=== PATIENT | female | born 1930 | race Caucasian/White ===

== ENCOUNTER → 2017-01-30 | Outpatient (CLI) | payer OTHER, MEDICARE ==
[~2017-01-30] MED LIST: ASPEC81 PO; ASPI81TA28 PO; ATEN-173 PO; ATOR-24 PO; AZEL15GE TOP; CETI10TA84 PO; CHOL100010 PO; CLCC1250 PO; DICL1GEL12 TOP; DICL1GEL28 TOP; DONE5TAB9 PO; DULO60CA44 PO; ESZO1TAB18 PO; FNCG50 TOP; FRC PO; FRCT/ PO; GLUC-172 PO; GLUCTAB54 PO; IPRA0.03 NAE; IPRA0.037 NAE; LEVO75TA5 PO; MELA1TAB5 PO; MELA3TAB PO; PANT40TA PO; RIBO1TAB4 PO
--- NOTE | 2017-01-31 13:04 | MAMMOGRAPHY REPORT ---
BILATERAL DIGITAL SCREENING MAMMOGRAM WITH CAD: 01/30/2017 CLINICAL HISTORY: Routine screening. Patient has no complaints. TECHNIQUE: Current study was also evaluated with a Computer Aided Detection (CAD) system. Bilatera l CC and MLO views were obtained. COMPARISON: Comparison is made to exams dated: 01/24/2015 mammogram, 01/21/2014 mammogram, 01/26/2016 mammogram, 01/13/2013 mammogram, 01/09/2012 mammogram, and 01/05/2011 mammogram - [facility]. BREAST COMPOSITION: The tissue of both breasts is heterogeneously dense, which may obscure small ma sses. FINDINGS: There is a 7 mm asymmetry seen on the left MLO view middle depth posterior to the nipple, not clearly evident on the cc view, for which spot compression tomosynthesis views and possible kerri ast ultrasound are recommended for further evaluation. This may represent normal overlapping fibrog landular tissue. At the time of the workup, recommend repeat right MLO view due to motion artifact. The remainder of both breasts are stable compared to prior exams, without suspicious masses, calcifi cations, or areas of architectural distortion noted. IMPRESSION: ACR BI-RADS CATEGORY 0: INCOMPLETE EVALUATION: NEED ADDITIONAL IMAGING EVALUATION Left breast asymmetry, for which additional imaging evaluation is recommended. Also recommend repea t right MLO view due to motion artifact. The patient will be called to schedule an appointment. Approximately 10% of breast cancers are not detected with mammography. A negative mammographic repor t should not delay biopsy if a clinically suggestive mass is present. Deedee Barrow M.D. ah/:01/30/2017 16:49:00 [employer]: Julissa DUVALL(R)(M), [facility] letter sent: Addl Imaging 0 BI-RADS Code: ACR BI-RADS Category 0: Incomplete Evaluation: Need Additional Imaging Evaluation
== END | disposition home or self-care (01) ==
LOC: C.MAMM 13:12
PROVIDERS: ATTEND Obstetrics & Gynecology
DX: Z12.31 Encounter for screening mammogram for malignant neoplasm of breast (principal); N64.89 Other specified disorders of breast

== ENCOUNTER 2017-03-15 09:36 | Emergency (ER) | payer OTHER, MEDICARE ==
[~2017-03-15] VITALS: Ht 162.6 cm; Wt 55.2 kg
[~2017-03-15 09:36] MED LIST changes: -ASPI81TA28 PO; -DICL1GEL12 TOP; -DONE5TAB9 PO; -ESZO1TAB18 PO; -FNCG50 TOP; -FRCT/ PO; -GLUCTAB54 PO; -IPRA0.03 NAE; -MELA1TAB5 PO; -RIBO1TAB4 PO
[2017-03-15] MEDS ORDERED: OXYCODONE HCL IR 5 MG TAB (IMMEDIATE RELEASE) PO STA (09:53)
[2017-03-15 09:57] VITALS: TEMP 36.5; Ht 162.6 cm; Wt 55.2 kg
[2017-03-15 10:40] LABS: BASO % 0.1 %; BASO ABS # 0.01 K/uL (0-0.2); COMPLETE YES; EOS % 0.5 %; HEMATOCRIT 39.9 % (37-47); IG% 0.6 %; LYMPH ABS # 1.52 K/uL (1.2-3.4); MEAN CORPUSCULAR HEMOGLOBIN 31.2 pg (25-34); MEAN CORPUSCULAR HGB CONC 33.6 g/dl (32-36); MEAN PLATELET VOLUME 12.2 fL (7.4-10.4); MONO % 11.2 %; NEUT % 72.6 %; PLATELET COUNT 218 K/uL (130-400); RED BLOOD COUNT 4.29 M/uL (4.2-5.4); WHITE BLOOD COUNT 10.15 K/uL (4.8-10.8)
--- NOTE | 2017-03-15 10:44 | DIAGNOSTIC IMAGING REPORT ---
RIGHT SHOULDER 3 VIEWS HISTORY: Right shoulder pain. COMPARISON: Right shoulder 08/20/2016. 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 There is now anterior dislocation of the humeral head in relation to the glenoid. The right clavicle is intact. No radiopaque foreign bodies. IMPRESSION: Anterior dislocation of the humeral head in relation to the glenoid. No change in the nonunited right humeral neck fracture. Electronically signed by: Carlos Horton M.D. 03/15/2017 10:42 AM Dictated Date/Time: 03/15/2017 10:39 AM
--- NOTE | 2017-03-15 10:47 | DIAGNOSTIC IMAGING REPORT ---
CHEST ONE VIEW PORTABLE HISTORY: fall COMPARISON: Chest 04/24/2014. FINDINGS: The lungs are clear. The heart is normal in size. Mildly tortuous thoracic aorta. 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 No pleural effusions. No pneumothorax. Nondisplaced right lateral ninth and 10th rib fractures. IMPRESSION: 1. Nondisplaced right lateral ninth and 10th rib fractures. No pneumothorax. 2. 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 Electronically signed by: Carlos Horton M.D. 03/15/2017 10:46 AM Dictated Date/Time: 03/15/2017 10:43 AM
--- NOTE | 2017-03-15 10:52 | DIAGNOSTIC IMAGING REPORT ---
RIGHT KNEE 3 VIEWS CLINICAL HISTORY: Right knee pain following fall. COMPARISON: Knee radiographs October 25, 2011. FINDINGS: Alignment of the right knee is anatomic. There is no acute fracture. There may be a small right knee joint effusion. There is chondrocalcinosis. Marked narrowing of the patellofemoral joint space is noted. IMPRESSION: 1. No acute fracture. 2. Small right knee joint effusion. 3. Marked patellofemoral joint space narrowing with chondrocalcinosis within the menisci. Electronically signed by: Kavon Connor M.D. 03/15/2017 10:51 AM Dictated Date/Time: 03/15/2017 10:47 AM
--- NOTE | 2017-03-15 11:04 | DIAGNOSTIC IMAGING REPORT ---
CT HEAD WITHOUT CONTRAST (CT) CLINICAL HISTORY: Headache. Head trauma. COMPARISON STUDY: 04/24/2014 TECHNIQUE: Axial CT of the brain is performed from the vertex to the skull base. IV contrast was not administered for this examination. CT DOSE: FINDINGS: No intra or extra-axial mass lesions are visualized. There is no CT evidence of acute cortical infarction. There is no evidence of midline shift. There is no acute hemorrhage. No calvarial fractures are visualized. There are moderate white matter hypodensities likely on a small vessel basis. There is an old infarct involving the right basal ganglia with involvement of the external capsule and anterior limb of the internal capsule. There is compensatory dilatation of the anterior horn the right lateral ventricle. There is also an old lacunar infarct within the left basal ganglia. There is no evidence of pathologic ventricular dilatation. There is no evidence of acute sinusitis. 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 03/15/2017 11:02 AM Dictated Date/Time: 03/15/2017 11:00 AM
--- NOTE | 2017-03-15 11:11 | DIAGNOSTIC IMAGING REPORT ---
CERVICAL SPINE CT CT DOSE: 840.01 mGy.cm HISTORY: Left sided neck pain. Fall. TECHNIQUE: Multiaxial CT images of the cervical spine were performed and reformatted in the sagittal and coronal plane without the use of contrast. COMPARISON: None. FINDINGS: No fractures. No subluxation. Prevertebral soft tissues and the C1-C2 interval are intact. No pneumothorax. Moderate disc space narrowing at C4-C5, C5-C6, and C6-C7. IMPRESSION: No fractures within the cervical spine. Electronically signed by: Carlos Horton M.D. 03/15/2017 11:10 AM Dictated Date/Time: 03/15/2017 11:05 AM
[2017-03-15 11:13] LABS: URINE APPEARANCE CLEAR (CLEAR); URINE BILIRUBIN NEG (NEG); URINE COLOR YELLOW; URINE EPITHELIAL CELL AUTO >30 /lpf (0-5); URINE NITRITE NEG (NEG); URINE SPECIFIC GRAVITY 1.019 (1.000-1.030); UROBILINOGEN NEG (NEG); ZZURINE CULT IF INDIC CATH NO
[2017-03-15] MEDS ORDERED: GLUCTAB54 PO (11:14)
[2017-03-15] MEDS ORDERED: ESZO1TAB18 PO (11:14)
[2017-03-15] MEDS ORDERED: RIBO1TAB4 PO (11:14)
[2017-03-15] MEDS ORDERED: PANT40TA PO (11:14)
[2017-03-15] MEDS ORDERED: FRCT/ PO (11:14)
[2017-03-15] MEDS ORDERED: IPRA0.03 NAE (11:14)
[2017-03-15] MEDS ORDERED: CHOL100010 PO (11:14)
[2017-03-15] MEDS ORDERED: ATOR-24 PO (11:14)
[2017-03-15] MEDS ORDERED: LEVO75TA5 PO (11:14)
[2017-03-15] MEDS ORDERED: MELA1TAB5 PO (11:14)
[2017-03-15] MEDS ORDERED: ATEN-173 PO (11:14)
[2017-03-15] MEDS ORDERED: DICL1GEL12 TOP (11:14)
[2017-03-15] MEDS ORDERED: ASPI81TA28 PO (11:14)
[2017-03-15] MEDS ORDERED: FNCG50 TOP (11:14)
[2017-03-15] MEDS ORDERED: DULO60CA44 PO (11:14)
[2017-03-15 11:30] LABS: MANUAL MICROSCOPIC REQUIRED? NO; REVIEW REQ? YES
[2017-03-15 11:34] LABS: ALKALINE PHOSPHATASE 182 U/L (45-117); ALT/SGPT 84 U/L (12-78); AST/SGOT 59 U/L (15-37); BLOOD UREA NITROGEN 21 mg/dl (7-18); BUN/CREATININE RATIO 21.7 (10-20); CALCIUM 10.1 mg/dl (8.5-10.1); CARBON DIOXIDE 31 mmol/L (21-32); CHLORIDE 102 mmol/L (98-107); CREATININE 0.98 mg/dl (0.60-1.20); GLUCOSE 102 mg/dl (70-99); POTASSIUM 4.1 mmol/L (3.5-5.1); SODIUM 139 mmol/L (136-145)
--- NOTE | 2017-03-15 13:34 | DIAGNOSTIC IMAGING REPORT ---
RIGHT SHOULDER RADIOGRAPHS CLINICAL HISTORY: Fall. Right shoulder pain. COMPARISON: Right shoulder radiographs August 20, 2016 and March 15, 2017. FINDINGS: A nonunited right humeral neck fracture is similar to exam of August 20, 2016. Fracture displacement is unchanged since that exam. Alignment of the right glenohumeral joint appears anatomic on this exam and improved since exam from earlier today. Alignment of the right AC joint is anatomic. IMPRESSION: 1. No change in appearance of the right shoulder since exam of August 20, 2016. Anatomic alignment of the right glenohumeral joint which appears improved since exam from earlier today. 2. No change in appearance of the nonunited right humeral neck fracture since exam of August 20, 2016. Electronically signed by: Kavon Connor M.D. 03/15/2017 1:32 PM Dictated Date/Time: 03/15/2017 1:30 PM
[2017-03-15 14:36] VITALS: BP 164/83; PULSE 93; O2SAT 97
--- NOTE | 2017-03-15 15:05 | EMERGENCY ROOM VISIT NOTE ---
History Report prepared by Mariibjavid: Geovanny Sahni Under the Supervision of: Dr. Jaime Hanks D.O. First contact with patient: 09:41 Chief Complaint: SHOULDER PAIN Stated Complaint: FALL History of Present Illness The patient is a 86 year old female who presents to the Emergency Room with complaints of constant neck pain s/p fall occurring shortly prior to arrival. She states that her found her on the floor immediately after she fell. She thinks that she likely fell out of bed, but may have been walking to the bathroom. The patient states "I was aware that something weird was going on". She states that she woke up on the floor and was not able to get up by herself. She is not on any blood thinners. The patient states that her right shoulder hurts, but this is chronic and not resulting from the fall. She also complains of right knee pain. She has a history of chronic back pain as well. Pt denies headache, change in vision, fevers, chest pain, shortness of breath, nausea, vomiting, diarrhea, pain with urination, and melena. Per , the patient has a history of strokes. He feels that the patient may have had a TIA within the past few weeks because he has noticed some behavioral changes. He notes that she has a history of dementia. The patient's states that the patient is at her mental baseline. Source of History: patient Onset: Shortly prior to arrival Position: neck Timing: constant Associated Symptoms: No fevers, No chest pain, No SOB, No nausea, No vomiting, No diarrhea Note: The patient also complains of right knee pain. Review of Systems See HPI for pertinent positives & negatives. A total of 10 systems reviewed and were otherwise negative. Past Medical & Surgical Medical Problems: (1) Cva (2) Esophageal Reflux (3) Hypertension Nos (4) Hypothyroidism Nos (5) Lumbago (6) Lumbosacral Spondylosis (7) Osteoporosis Nos Family History No pertinent family history stated. Social History Smoking Status: Never Smoker Alcohol Use: none Marital Status: Occupation Status: retired Current/Historical Medications Scheduled Aspirin (Aspirin Ec), 162 MG PO DAILY Atenolol (Tenormin), 12.5 MG PO DAILY Atorvastatin (Lipitor), 40 MG PO DAILY Cholecalciferol (Vitamin D), 2,000 UNITS PO DAILY Diclofenac Sodium (Topical) (Voltaren 1% Top Gel), 2 GM TOP QID Duloxetine Hcl (Cymbalta), 60 MG PO DAILY Eszopiclone (Lunesta), 2 MG PO HS Abyfjiunrkh-Kcpxftccoit-Wffmon (Glucosamine Chondroitin M), 1 TAB PO DAILY Ipratropium [place] (Nasal) (Ipratropium [place]), 2 SPRAYS CHACHO TID Levothyroxine Sodium (Levothyroxine Sodium), 1 TAB PO DAILY Melatonin (Kp Melatonin), 6 MG PO HS Pantoprazole (Protonix), 40 MG PO BID Riboflavin (Riboflavin), 400 MG PO DAILY Scheduled PRN Acetamin/Butalbital/Caffeine (Fioricet), 1 TAB PO Q6 PRN for Headache or Pain Azelaic Acid (Finacea), 1 APPLN TOP UD PRN for ROSACEA Allergies Uncoded Allergies: MECLOMINE (Allergy, Mild, RASH, 04/06/16) Physical Exam Vital Signs Date Time Temp Pulse Resp B/P (MAP) Pulse Ox O2 Delivery O2 Flow Rate FiO2 03/15/17 14:36 93 16 164/83 97 03/15/17 12:52 86 18 153/90 98 Room Air 03/15/17 10:54 73 18 175/88 97 Room Air 03/15/17 09:57 36.5 80 18 150/96 97 Room Air Physical Exam GENERAL: alert, well appearing, well nourished, no distress, non-toxic HEAD: normal cephalic, atraumatic EYE EXAM: normal conjunctiva, PERRL and EOM's grossly intact OROPHARYNX: no exudate, no erythema, lips, buccal mucosa, and tongue normal and mucous membranes are moist EARS: TMs clear b/l NECK: supple, no nuchal rigidity, no adenopathy, non-tender CHEST: stable to compression anteriorly and posteriorly LUNGS: clear to auscultation. Normal chest wall mechanics HEART: no murmurs, S1 normal and S2 normal ABDOMEN: abdomen soft, non-tender, normo-active bowel sounds, no masses, no rebound or guarding. PELVIS: stable to compression anteriorly and posteriorly BACK: Back is symmetrical on inspection and there is no deformity, no midline tenderness, no CVA tenderness. UPPER EXTREMITIES: Reproducible tenderness to the right humerus, no obvious deformity. LOWER EXTREMITIES: full active and passive range of motion of all joints with minimal tenderness to the right knee. NEURO EXAM: Normal sensorium, awake, alert, oriented to person place and time. Does not recall the fall. GCS: 14. At mental baseline per . Medical Decision & Procedures ER Provider Diagnostic Interpretation: Radiology results as stated below per my review and the radiologist's interpretation: CERVICAL SPINE CT FINDINGS: No fractures. No subluxation. Prevertebral soft tissues and the C1-C2 interval are intact. No pneumothorax. Moderate disc space narrowing at C4-C5, C5-C6, and C6-C7. IMPRESSION: No fractures within the cervical spine. Electronically signed by: Carlos Horton M.D. CT HEAD WITHOUT CONTRAST (CT) FINDINGS: No intra or extra-axial mass lesions are visualized. There is no CT evidence of acute cortical infarction. There is no evidence of midline shift. There is no acute hemorrhage. No calvarial fractures are visualized. There are moderate white matter hypodensities likely on a small vessel basis. There is an old infarct involving the right basal ganglia with involvement of the external capsule and anterior limb of the internal capsule. There is compensatory dilatation of the anterior horn the right lateral ventricle. There is also an old lacunar infarct within the left basal ganglia. There is no evidence of pathologic ventricular dilatation. There is no evidence of acute sinusitis. 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 CHEST ONE VIEW PORTABLE FINDINGS: The lungs are clear. The heart is normal in size. Mildly tortuous thoracic aorta. 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 No pleural effusions. No pneumothorax. Nondisplaced right lateral ninth and 10th rib fractures. IMPRESSION: 1. Nondisplaced right lateral ninth and 10th rib fractures. No pneumothorax. 2. 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 Electronically signed by: Carlos Horton M.D. RIGHT KNEE 3 VIEWS FINDINGS: Alignment of the right knee is anatomic. There is no acute fracture. There may be a small right knee joint effusion. There is chondrocalcinosis. Marked narrowing of the patellofemoral joint space is noted. IMPRESSION: 1. No acute fracture. 2. Small right knee joint effusion. 3. Marked patellofemoral joint space narrowing with chondrocalcinosis within the menisci. Electronically signed by: Kavon Connor M.D. RIGHT SHOULDER 3 VIEWS FINDINGS: Nonunited right humeral neck fracture is again noted. There is now anterior dislocation of the humeral head in relation to the glenoid. The right clavicle is intact. No radiopaque foreign bodies. IMPRESSION: Anterior dislocation of the humeral head in relation to the glenoid. No change in the nonunited right humeral neck fracture. Electronically signed by: Carlos Horton M.D. RIGHT SHOULDER RADIOGRAPHS FINDINGS: A nonunited right humeral neck fracture is similar to exam of August 20, 2016. Fracture displacement is unchanged since that exam. Alignment of the right glenohumeral joint appears anatomic on this exam and improved since exam from earlier today. Alignment of the right AC joint is anatomic. IMPRESSION: 1. No change in appearance of the right shoulder since exam of August 20, 2016. Anatomic alignment of the right glenohumeral joint which appears improved since exam from earlier today. 2. No change in appearance of the nonunited right humeral neck fracture since exam of August 20, 2016. Electronically signed by: Kavon Connor M.D. Laboratory Results 03/15/17 10:30 Red Blood Count 4.29, Mean Corpuscular Volume 93.0, Mean Corpuscular Hemoglobin 31.2, Mean Corpuscular Hemoglobin Concent 33.6, Mean Platelet Volume 12.2, Neutrophils (%) (Auto) 72.6, Lymphocytes (%) (Auto) 15.0, Monocytes (%) (Auto) 11.2, Eosinophils (%) (Auto) 0.5, Basophils (%) (Auto) 0.1, Neutrophils # (Auto ) 7.37, Lymphocytes # (Auto) 1.52, Monocytes # (Auto) 1.14, Eosinophils # (Auto ) 0.05, Basophils # (Auto) 0.01 03/15/17 10:30 Test 03/15/17 10:30 03/15/17 10:40 White Blood Count 10.15 K/uL (4.8-10.8) Red Blood Count 4.29 M/uL (4.2-5.4) Hemoglobin 13.4 g/dL (12.0-16.0) Hematocrit 39.9 % (37-47) Mean Corpuscular Volume 93.0 fL (80-100) Mean Corpuscular Hemoglobin 31.2 pg (25-34) Mean Corpuscular Hemoglobin Concent 33.6 g/dl (32-36) Platelet Count 218 K/uL (130-400) Mean Platelet Volume 12.2 fL (7.4-10.4) Neutrophils (%) (Auto) 72.6 % Lymphocytes (%) (Auto) 15.0 % Monocytes (%) (Auto) 11.2 % Eosinophils (%) (Auto) 0.5 % Basophils (%) (Auto) 0.1 % Neutrophils # (Auto) 7.37 K/uL (1.4-6.5) Lymphocytes # (Auto) 1.52 K/uL (1.2-3.4) Monocytes # (Auto) 1.14 K/uL (0.11-0.59) Eosinophils # (Auto) 0.05 K/uL (0-0.5) Basophils # (Auto) 0.01 K/uL (0-0.2) RDW Standard Deviation 46.5 fL (36.4-46.3) RDW Coefficient of Variation 13.6 % (11.5-14.5) Immature Granulocyte % (Auto) 0.6 % Immature Granulocyte # (Auto) 0.06 K/uL (0.00-0.02) Anion Gap 6.0 mmol/L (3-11) Est Creatinine Clear Calc Drug Dose 36.9 ml/min Estimated GFR () 61.4 Estimated GFR (Non- 53.0 BUN/Creatinine Ratio 21.7 (10-20) Calcium Level 10.1 mg/dl (8.5-10.1) Total Bilirubin 0.4 mg/dl (0.2-1) Direct Bilirubin mg/dl (0-0.2) Aspartate Amino Transf (AST/SGOT) 59 U/L (15-37) Alanine Aminotransferase (ALT/SGPT) 84 U/L (12-78) Alkaline Phosphatase 182 U/L (45-117) Total Protein 8.0 gm/dl (6.4-8.2) Albumin 3.4 gm/dl (3.4-5.0) Chemistry Specimen Hemolysis Urine Color YELLOW Urine Appearance CLEAR (CLEAR) Urine pH 7.0 (4.5-7.5) Urine Specific [place] 1.019 (1.000-1.030) Urine Protein 2+ (NEG) Urine Glucose (UA) NEG (NEG) Urine Ketones NEG (NEG) Urine Occult Blood NEG (NEG) Urine Nitrite NEG (NEG) Urine Bilirubin NEG (NEG) Urine Urobilinogen NEG (NEG) Urine Leukocyte Esterase NEG (NEG) Urine WBC (Auto) 1-5 /hpf (0-5) Urine RBC (Auto) 0-4 /hpf (0-4) Urine Hyaline Casts (Auto) 10-30 /lpf (0-5) Urine Epithelial Cells (Auto) >30 /lpf (0-5) Urine Bacteria (Auto) NEG (NEG) Urine Renal Epithelial Cells 5-10 /lpf (0-5) Laboratory results per my review. Medications Administered Medications (Trade) Dose Ordered Sig/Rosa M Route Start Time Stop Time Status Last Admin Dose Admin Oxycodone HCl (Roxicodone Immediate Rel Tab) 5 mg NOW STAT PO 03/15/17 09:53 03/15/17 09:57 DC 03/15/17 09:53 5 MG ED Course ED COURSE: Vital signs were reviewed and showed hypertension The patients medical record was reviewed The above diagnostic studies were performed and reviewed. ED treatments and interventions as stated above. 0950: The patient was evaluated in room A2. A complete history and physical examination was performed. 0953: Ordered Roxicodone Immediate Rel Tab 5 mg PO. 1342: Upon reevaluation, the patient is resting comfortably. I discussed my findings with the patient and she understands and agrees with the treatment plan. Based on the patients age, coexisting illnesses, exam and lab findings the decision to treat as an outpatient was made. The patient remained stable while under my care. The patient appeared well at the time of discharge. Medical Decision Differential diagnoses include major intracranial, cervical, spinal, thoracic, abdominal, pelvic and neurologic injury. Fracture, contusion, sprain, strain, laceration, abrasions included as well. Patient is an 86-year-old female who presents the ER following falling out of bed per the patient. The notes that she was getting up out of bed and fell. Patient does have a history of dementia. Currently she is at her baseline. Patient is completely neurologically intact on my exam. No signs of external trauma. She does have tenderness of the right shoulder, right knee and left lateral neck. CT head and neck were negative. X-rays of her knee showed no acute fracture. X-rays of the chest show old rib fractures as the notes she fell a week ago and was complaining of pain in her ribs but this pain has now subsided. On the right shoulder x-ray and chest x-ray there is a question of a humeral head dislocation. I did discuss this with orthopedics and following lateral axilla imaging it does appear that there is the old fracture with the humeral head in place. CBC along with BMP was unremarkable. Slight transaminitis. Patient has no tenderness on exam. She was discharged to follow-up with her primary care doctor. Discussed with Pt concerning signs and symptoms to watch out for. Pt was instructed to follow up with their PCP and discussed with the patient their option to return to the ED at anytime for persistent or worsening symptoms. The appropriate anticipatory guidance and out-patient management, including indications for return to the emergency department, were explained at length to the patient and understood. Consults Time Called: 1125 Consulting Physician: Dr. Crespo -Orthopedics Returned Call: 1130 Discussed the patient's case with Dr. Crespo. He agrees that the patient's shoulder x-ray looks unchanged but recommended axillary/lateral views to confirm. Impression Primary Impression: Fall Additional Impressions: Closed rib fracture Humerus fracture Scribe Attestation The scribe's documentation has been prepared under my direction and personally reviewed by me in its entirety. I confirm that the note above accurately reflects all work, treatment, procedures, and medical decision making performed by me. Departure Information Dispostion Home / Self-Care Referrals Constantine Kirkpatrick D.O. (PCP) Forms HOME CARE DOCUMENTATION FORM, IMPORTANT VISIT INFORMATION Patient Instructions ED Fall Uncertain Cause, Falls Risks Prevent, [facility] Additional Instructions Please follow up with your primary care doctor with in the next 24 hours. Any worsening of your symptoms, please return to the ED immediately. This includes fevers greater than 100.4, confusion, passing out, change in vision, or any other concerning signs or symptoms from your standpoint. Problem Qualifiers Primary Impression: Fall Encounter type: initial encounter Qualified Codes: W19.XXXA - Unspecified fall, initial encounter Additional Impressions: Closed rib fracture Encounter type: subsequent encounter Rib fracture type: multiple ribs Laterality: right Fracture healing: with routine healing Qualified Codes: S22.41XD - Multiple fractures of ribs, right side, subsequent encounter for fracture with routine healing Humerus fracture Encounter type: subsequent encounter Humerus Location: proximal Fracture type: closed Fracture morphology: unspecified fracture morphology Laterality : right Fracture healing: with nonunion Qualified Codes: S42.201K - Unspecified fracture of upper end of right humerus, subsequent encounter for fracture with nonunion
[2017-08-22] MEDS ORDERED: DONE5TAB9 PO (11:24)
== END 2017-03-15 14:20 | disposition home or self-care (01) ==
LOC: EDBD 09:36 → C.EDA 09:39
DX: S22.41XD Multiple fractures of ribs, right side, subsequent encounter for fracture with routine healing (principal); S42.201K Unspecified fracture of upper end of right humerus, subsequent encounter for fracture with nonunion; W19.XXXA Unspecified fall, initial encounter; Y92.013 Bedroom of single-family (private) house as the place of occurrence of the external cause; F03.90 Unspecified dementia, unspecified severity, without behavioral disturbance, psychotic disturbance, mood disturbance, and anxiety; K21.9 Gastro-esophageal reflux disease without esophagitis; I10 Essential (primary) hypertension; E03.9 Hypothyroidism, unspecified; M47.817 Spondylosis without myelopathy or radiculopathy, lumbosacral region; M81.0 Age-related osteoporosis without current pathological fracture; Z79.82 Long term (current) use of aspirin; Z79.899 Other long term (current) drug therapy

== ENCOUNTER → 2017-04-04 | Outpatient (CLI) | payer OTHER, MEDICARE ==
[~2017-04-04] MED LIST changes: -ASPEC81 PO; +ASPI81TA28 PO; -AZEL15GE TOP; -CETI10TA84 PO; -CLCC1250 PO; +DICL1GEL12 TOP; -DICL1GEL28 TOP; +DONE5TAB9 PO; +ESZO1TAB18 PO; +FNCG50 TOP; -FRC PO; +FRCT/ PO; -GLUC-172 PO; +GLUCTAB54 PO; +IPRA0.03 NAE; -IPRA0.037 NAE; +MELA1TAB5 PO; -MELA3TAB PO; +RIBO1TAB4 PO
--- NOTE | 2017-04-04 14:58 | DIAGNOSTIC IMAGING REPORT ---
LEFT FOOT MIN 3 VIEWS CLINICAL HISTORY: Left foot pain. COMPARISON: None. DISCUSSION: The bones are osteopenic. There is an intra-articular fracture through the medial base of the proximal phalanx of the great toe. There is 1 mm maximal distraction. IMPRESSION: Intra-articular fracture involving the base of the proximal phalanx of the great toe Electronically signed by: Koko Ferrari M.D. 04/04/2017 2:57 PM Dictated Date/Time: 04/04/2017 2:55 PM
== END | disposition home or self-care (01) ==
LOC: C.RDSM 14:30
PROVIDERS: ATTEND Physician Assistant
DX: S92.412A Displaced fracture of proximal phalanx of left great toe, initial encounter for closed fracture (principal); X58.XXXA Exposure to other specified factors, initial encounter; M79.672 Pain in left foot

== ENCOUNTER → 2017-04-22 | Outpatient (CLI) | payer OTHER, MEDICARE ==
[~2017-04-22] MED LIST changes: -DONE5TAB9 PO
== END | disposition home or self-care (01) ==
LOC: C.MAMM 13:00
PROVIDERS: ATTEND Internal Medicine
DX: M81.0 Age-related osteoporosis without current pathological fracture (principal)

== ENCOUNTER → 2017-08-29 | Day surgery (SDC) | payer OTHER, MEDICARE ==
[2017-08-22 11:17] VITALS: Ht 162.6 cm; Wt 55.0 kg
[~2017-08-29] VITALS: Ht 162.6 cm; Wt 55.0 kg
[~2017-08-29] MED LIST changes: -CHOL100010 PO; +DONE5TAB9 PO; -FNCG50 TOP; +LIDOCAINE HCL 1% MPF 5 ML VIAL ONE; -RIBO1TAB4 PO; +SODIUM CHLORIDE 0.9% INJ 10 ML VIAL ONE
--- NOTE | 2017-08-29 13:10 | History & Physical Bridge - [place] ---
H&P Re-Evaluation Bridge Note: I have examined the patient, reviewed the History & Physical and in the interval since the performance of the History & Physical I have noted the following changes of clinical significance: No changes noted
[2017-08-29 13:35] VITALS: TEMP 36.4
--- NOTE | 2017-08-29 13:38 | Discharge Instructions ---
Discharge Instructions Date of Service Aug 29, 2017. Visit Reason for Visit: Lumbar Radiculopathy Discharge Discharge Diagnosis / Problem: right leg pain Discharge Goals Goal(s): Decrease discomfort, Improve function Activity Recommendations Activity Limitations: resume your previous activity Anesthesia . Post Anesthesia Instructions: If you have had General Anesthesia or IV Sedation: * Do not drive today. * Resume driving when surgeon permits. * Do not make important decisions or sign legal documents today. * Call surgeon for: 1. Temperature elevations greater than 101 degrees F. 2. Uncontrollable pain. 3. Excessive bleeding. 4. Persistent nausea and vomiting. 5. Medication intolerance (nausea, vomiting or rash). * For nausea and vomiting use only clear liquids such as: tea, soda, bouillon until nausea subsides, then gradually increase diet as tolerated. * If you have any concerns or questions, call your surgeon's office. If physician is unavailable and it is an emergency, call 911 or go to the nearest emergency room. . Diet Recommendations Recommended Home Diet: resume previous diet Procedures Procedures Performed: CAUDAL EPIDURAL STEROID INJECTION. Pending Studies Studies pending at discharge: no Medical Emergencies . Who to Call and When: Medical Emergencies: If at any time you feel your situation is an emergency, please call 911 immediately. . Non-Emergent Contact Non-Emergency issues call your: Specialist . . "Provider Documentation" section prepared by Garcia Rosa. .
[2017-08-29 13:54] VITALS: BP 143/94; PULSE 54; O2SAT 98
--- NOTE | 2017-08-29 13:54 | OPERATIVE REPORT ---
DATE OF OPERATION: 08/29/2017 PREOPERATIVE DIAGNOSIS: Lumbar spinal stenosis with right lower extremity S1 radiculopathy. POSTOPERATIVE DIAGNOSIS: Same. PROCEDURE: Caudal epidural steroid injection under fluoroscopic guidance. INDICATIONS: The patient is an 86-year-old white female who presents today for an epidural injection as she has persistent radicular pain that is not responding to conservative measures. The decision will be made to enter via caudal approach given her underlying medications and not to hold the antiplatelet therapy to place her at risk of stroke. PHYSICAL EXAMINATION: Pleasant female seated comfortably. She has some right sciatic notch sensitivities. No issues with forward flexion or extension. Normal lower extremity strength. Negative seated straight leg raises and intact sensation distally. CONSENT: Verbal and written consent was obtained from the patient. Risks and benefits were reviewed. Risks include, but are not limited to abscess and allergic reaction. The patient wishes to proceed. DESCRIPTION OF PROCEDURE: The patient was taken back into the special procedures room of [facility]. She was maintained in a prone position. Backside was cleansed with Betadine x3 and a dry sterile dressing was applied. Fluoroscope was used to identify the sacral hiatus in the lateral view and the overlying skin was anesthetized with 5 mL of lidocaine 1% with a 25-gauge 1-1/2 inch needle. A 25-gauge 3-1/2 inch spinal needle was then directed under fluoroscopic guidance into the canal. She then underwent injection after negative aspiration of 40 mg of Depo-Medrol and 4 mL of preservative free sodium chloride. Injection was well tolerated. DISPOSITION: 1. The patient was taken out into the discharge recovery area, where she will be discharged home once discharge criteria have been met. 2. Follow up in the [facility] office in 2-4 weeks. I attest to the content of the Intraoperative Record and any orders documented therein. Any exception s are noted below.
== END | disposition home or self-care (01) ==
LOC: X.SURG 12:37
PROVIDERS: ATTEND Physical Medicine & Rehabilitation
DX: M48.061 Spinal stenosis, lumbar region without neurogenic claudication (principal); M54.16 Radiculopathy, lumbar region; M41.9 Scoliosis, unspecified; M17.0 Bilateral primary osteoarthritis of knee

== ENCOUNTER 2017-10-31 09:28 | Observation (INO) | payer OTHER, MEDICARE ==
[~2017-10-31] VITALS: Ht 162.6 cm; Wt 54.0 kg
[~2017-10-31 09:28] MED LIST changes: -LIDOCAINE HCL 1% MPF 5 ML VIAL ONE; -SODIUM CHLORIDE 0.9% INJ 10 ML VIAL ONE
[2017-10-31] MEDS ORDERED: ACETAMINOPHEN 500 MG TAB PO STA (09:41)
--- NOTE | 2017-10-31 09:45 | EMERGENCY ROOM VISIT NOTE ---
History Report prepared by Amauri: Demetrio Sagastume Under the Supervision of: Dr. Ever Mario M.D. First contact with patient: 09:31 Stated Complaint: LEG PAIN History of Present Illness The patient is an 86 year old female who presents to the Emergency Room with complaints of constant left leg pain for the past four days. The pain is worsened with movement, sitting up, and rolling over. The patient states that three weeks ago she had an injection in her spine to relieve the pain that was going down her leg. She notes that the injection initially relieved the pain, however now the pain is worse than it was before the injection. The patient denies any falls or injuries. The patient has also been having more difficulty with ambulation recently. She additionally notes that she called her PCP, and they told her to come to the ED for further evaluation. The patient notes that she has been having issues with her back for a long time. The patient denies any abdominal pain, urinary symptoms, fever, and vomiting. The patient seems to be a poor historian. Per the patient's physician, the patient's only recent procedure was a lumbar injection in August for pain in the right leg, the patient has had right leg pain and left buttocks pain, though the pain has never radiated down her left leg. Source of History: patient Onset: four days Position: leg (left) Timing: constant Modifying Factors (Worsening): movement, other (sitting up and rolling over) Associated Symptoms: No fevers, No vomiting, No abdominal pain, No urinary symptoms Review of Systems See HPI for pertinent positives & negatives. A total of 10 systems reviewed and were otherwise negative. Past Medical & Surgical Medical Problems: (1) Ambulatory dysfunction (2) Cva (3) Esophageal Reflux (4) Hypertension Nos (5) Hypothyroidism Nos (6) Lumbago (7) Lumbosacral Spondylosis (8) Osteoporosis Nos Social History Smoking Status: Never Smoker Alcohol Use: none Marital Status: Occupation Status: retired Current/Historical Medications Scheduled Aspirin (Aspirin Ec), 81 MG PO BID Atenolol (Tenormin), 12.5 MG PO QAM Atorvastatin (Lipitor), 40 MG PO QAM Calcium Carbonate-Vitamin D (Calcium), 1 TAB PO DAILY Cholecalciferol (Vitamin D3), 1 TAB PO DAILY Diclofenac Sodium (Topical) (Voltaren 1% Top Gel), 2 GM TOP QID Donepezil HCl (Aricept), 5 MG PO QPM Duloxetine HCl (Duloxetine HCl), 15 MG PO DAILY Eszopiclone (Lunesta), 2 MG PO HS Jssjqlczeck-Hvepkvhohyf-Hxeesm (Glucosamine Chondroitin M), 1 TAB PO QAM Ipratropium [place] (Nasal) (Ipratropium [place]atch), 2 SPRAYS CHACHO HS Levothyroxine Sodium (Levothyroxine Sodium), 75 MCG PO QAM Melatonin (Kp Melatonin), 3 MG PO HS Pantoprazole (Protonix), 80 MG PO DINNER Scheduled PRN Acetamin/Butalbital/Caffeine (Fioricet), 1 TAB PO Q6 PRN for Headache or Pain Allergies Coded Allergies: Meclofenamate (Unverified Allergy, Unknown, RASH, 10/31/17) Physical Exam Vital Signs Date Time Temp Pulse Resp B/P (MAP) Pulse Ox O2 Delivery O2 Flow Rate FiO2 10/31/17 17:22 36.7 60 18 141/70 95 Room Air 10/31/17 14:25 60 18 120/82 96 Room Air 10/31/17 12:54 68 155/91 96 Room Air 10/31/17 10:35 73 16 96 Room Air 10/31/17 09:36 36.5 69 16 161/87 97 Room Air Physical Exam GENERAL: Patient is in no acute distress. HEENT: No acute trauma, normocephalic atraumatic, mucous membranes moist, no nasal congestion, no scleral icterus. NECK: No stridor, no adenopathy, no meningismus, trachea is midline. LUNGS: Clear to auscultation bilaterally, no wheeze, no rhonchi, breath sounds equal. HEART: Without murmurs gallops or rubs, regular rate and rhythm. ABDOMEN: Soft, nontender, bowel sounds positive, no hernias, no peritonitis. EXTREMITIES: The left leg is slightly swollen when compared to the right. Painful to palpate the left medial thigh near the groin. No erythema. Strong femoral pulse on the left with a warm distal left foot. Pain to palpate the lateral left hip and left buttock area. Pain worsens with movement of the left hip and with rolling over and sitting up. NEUROLOGIC: No acute motor or sensory deficits, no focal weakness. SKIN: No rash, no jaundice, no diaphoresis. Medical Decision & Procedures ER Provider Diagnostic Interpretation: Radiology results as stated below per my review and radiologist interpretation: L VENOUS DOPP LOWER EXT UNILAT CLINICAL HISTORY: swelling, pain pain. Edema. TECHNIQUE: Venous Doppler COMPARISON STUDY: None FINDINGS: Normal study IMPRESSION: Normal study The above report was generated using voice recognition software. It may contain grammatical, syntax or spelling errors. Electronically signed by: Ld Dye M.D. 10/31/2017 11:21 AM Dictated Date/Time: 10/31/2017 11:20 AM L PELVIS/UNILATERAL HIP 2-3VIEWS CLINICAL HISTORY: Left leg pain pain COMPARISON: None. DISCUSSION: Moderate degenerative narrowing of the hips bilaterally. No evidence for acetabular protrusion. No acute bony abnormality. Old healed fracture left symphysis pubis. Considerable degenerative changes low lumbar spine. There is no evidence for soft tissue swelling. IMPRESSION: Findings consistent with moderate degenerative change. No acute process. The above report was generated using voice recognition software. It may contain grammatical, syntax or spelling errors. Electronically signed by: Ld Dye M.D. 10/31/2017 10:56 AM Dictated Date/Time: 10/31/2017 10:55 AM Laboratory Results 10/31/17 09:50 Red Blood Count 4.27, Mean Corpuscular Volume 90.6, Mean Corpuscular Hemoglobin 31.1, Mean Corpuscular Hemoglobin Concent 34.4, Mean Platelet Volume 11.8, Neutrophils (%) (Auto) 74.5, Lymphocytes (%) (Auto) 14.2, Monocytes (%) (Auto) 10.2, Eosinophils (%) (Auto) 0.6, Basophils (%) (Auto) 0.1, Neutrophils # (Auto ) 6.89, Lymphocytes # (Auto) 1.31, Monocytes # (Auto) 0.94, Eosinophils # (Auto ) 0.06, Basophils # (Auto) 0.01 10/31/17 09:50 Test 10/31/17 09:50 10/31/17 10:24 10/31/17 18:01 White Blood Count 9.25 K/uL (4.8-10.8) Red Blood Count 4.27 M/uL (4.2-5.4) Hemoglobin 13.3 g/dL (12.0-16.0) Hematocrit 38.7 % (37-47) Mean Corpuscular Volume 90.6 fL (80-100) Mean Corpuscular Hemoglobin 31.1 pg (25-34) Mean Corpuscular Hemoglobin Concent 34.4 g/dl (32-36) Platelet Count 178 K/uL (130-400) Mean Platelet Volume 11.8 fL (7.4-10.4) Neutrophils (%) (Auto) 74.5 % Lymphocytes (%) (Auto) 14.2 % Monocytes (%) (Auto) 10.2 % Eosinophils (%) (Auto) 0.6 % Basophils (%) (Auto) 0.1 % Neutrophils # (Auto) 6.89 K/uL (1.4-6.5) Lymphocytes # (Auto) 1.31 K/uL (1.2-3.4) Monocytes # (Auto) 0.94 K/uL (0.11-0.59) Eosinophils # (Auto) 0.06 K/uL (0-0.5) Basophils # (Auto) 0.01 K/uL (0-0.2) RDW Standard Deviation 45.2 fL (36.4-46.3) RDW Coefficient of Variation 13.7 % (11.5-14.5) Immature Granulocyte % (Auto) 0.4 % Immature Granulocyte # (Auto) 0.04 K/uL (0.00-0.02) Erythrocyte Sedimentation Rate 21 mm/hr (0-21) Anion Gap 4.0 mmol/L (3-11) Est Creatinine Clear Calc Drug Dose 25.9 ml/min Estimated GFR () 47.1 Estimated GFR (Non- 40.6 BUN/Creatinine Ratio 25.2 (10-20) Calcium Level 10.1 mg/dl (8.5-10.1) C-Reactive Protein 2.95 mg/dl (0-0.29) Urine Color YELLOW Urine Appearance CLEAR (CLEAR) Urine pH 5.5 (4.5-7.5) Urine Specific [place] 1.018 (1.000-1.030) Urine Protein NEG (NEG) Urine Glucose (UA) NEG (NEG) Urine Ketones TRACE (NEG) Urine Occult Blood NEG (NEG) Urine Nitrite NEG (NEG) Urine Bilirubin NEG (NEG) Urine Urobilinogen NEG (NEG) Urine Leukocyte Esterase NEG (NEG) Laboratory results reviewed by me. Medications Administered Medications (Trade) Dose Ordered Sig/Rosa M Route Start Time Stop Time Status Last Admin Dose Admin Acetaminophen (Tylenol Tab) 1,000 mg NOW STAT PO 10/31/17 09:41 10/31/17 09:44 DC 10/31/17 10:06 1,000 MG ED Course 0931: The patient was evaluated in room A2. A complete history and physical exam was performed. 0941: Tylenol 1000mg PO 1218: I reevaluated the patient, and I discussed the treatment plan with her and her family. 1615: Discussed the patient's case with Magy Quevedo PA-C. The patient will be evaluated for further management. Medical Decision Differential diagnoses considered include sciatica, DVT, lumbar stenosis, radiculopathy, infection, fracture, arthritis, and bursitis. There is no leukocytosis or concerning anemia. No significant electrolyte abnormality or kidney failure. Sedimentation rate is normal, CRP is slightly elevated. Urinalysis does not show infection. Left leg ultrasound does not show DVT. Left hip and pelvis films show some arthritis. Patient received oral Tylenol, nothing further was required for pain control. The patient has dementia and is not functioning well at home. Her family called here and they were concerned about her safety and felt that she would require placement-they can no longer care for her adequately. I did speak to the patient's pain management doctor. Injections in her the back for sciatica have been done before but none have been done since last August. A hospital stay is warranted. We did attempt to place the patient in rehabilitation but this was unsuccessful. Further workup for placement is required. I did speak to the patient and case management. The on-call hospitalist was consulted. In short, the pain seems musculoskeletal, possibly from arthritis, possibly from sciatica. Medication Reconcilliation Current Medication List: was personally reviewed by me Blood Pressure Screening Patient's blood pressure: Elevated blood pressure Monitored by the hospitalist. Consults Time Called: 1609 Consulting Physician: Magy Quevedo PA-C Returned Call: [phone] Discussed the patient's case with Magy Quevedo. The patient will be evaluated for further management. Impression Primary Impression: Leg pain, left Additional Impressions: Lower back pain Dementia Scribe Attestation The scribe's documentation has been prepared under my direction and personally reviewed by me in its entirety. I confirm that the note above accurately reflects all work, treatment, procedures, and medical decision making performed by me. Departure Information Dispostion Being Evaluated By Hospitalist Referrals Constantine Kirkpatrick D.O. (PCP) Problem Qualifiers
[2017-10-31 10:07] LABS: BASO % 0.1 %; BASO ABS # 0.01 K/uL (0-0.2); EOS % 0.6 %; EOS ABS # 0.06 K/uL (0-0.5); HEMATOCRIT 38.7 % (37-47); HEMOGLOBIN 13.3 g/dL (12.0-16.0); IG# 0.04 K/uL (0.00-0.02); LYMPH % 14.2 %; LYMPH ABS # 1.31 K/uL (1.2-3.4); MEAN CELL VOLUME 90.6 fL (80-100); MEAN CORPUSCULAR HEMOGLOBIN 31.1 pg (25-34); MEAN CORPUSCULAR HGB CONC 34.4 g/dl (32-36); MEAN PLATELET VOLUME 11.8 fL (7.4-10.4); MONO % 10.2 %; MONO ABS # 0.94 K/uL (0.11-0.59); NEUT % 74.5 %; NEUT ABS # 6.89 K/uL (1.4-6.5); PLATELET COUNT 178 K/uL (130-400); RED CELL DISTRIBUTION WIDTH CV 13.7 % (11.5-14.5); RED CELL DISTRIBUTION WIDTH SD 45.2 fL (36.4-46.3); WHITE BLOOD COUNT 9.25 K/uL (4.8-10.8)
[2017-10-31 10:23] LABS: CALCIUM 10.1 mg/dl (8.5-10.1); CREATININE 1.22 mg/dl (0.60-1.20); POTASSIUM 4.2 mmol/L (3.5-5.1)
[2017-10-31] MEDS ORDERED: CHOL1000 PO (10:31)
[2017-10-31] MEDS ORDERED: CALC-51 PO (10:31)
[2017-10-31] MEDS ORDERED: CYM30 PO (10:31)
--- NOTE | 2017-10-31 10:57 | DIAGNOSTIC IMAGING REPORT ---
L PELVIS/UNILATERAL HIP 2-3VIEWS CLINICAL HISTORY: Left leg pain pain COMPARISON: None. DISCUSSION: Moderate degenerative narrowing of the hips bilaterally. No evidence for acetabular protrusion. No acute bony abnormality. Old healed fracture left symphysis pubis. Considerable degenerative changes low lumbar spine. There is no evidence for soft tissue swelling. IMPRESSION: Findings consistent with moderate degenerative change. No acute process. The above report was generated using voice recognition software. It may contain grammatical, syntax or spelling errors. Electronically signed by: Ld Dye M.D. 10/31/2017 10:56 AM Dictated Date/Time: 10/31/2017 10:55 AM
--- NOTE | 2017-10-31 11:22 | DIAGNOSTIC IMAGING REPORT ---
L VENOUS DOPP LOWER EXT UNILAT CLINICAL HISTORY: swelling, pain pain. Edema. TECHNIQUE: Venous Doppler COMPARISON STUDY: None FINDINGS: Normal study IMPRESSION: Normal study The above report was generated using voice recognition software. It may contain grammatical, syntax or spelling errors. Electronically signed by: Ld Dye M.D. 10/31/2017 11:21 AM Dictated Date/Time: 10/31/2017 11:20 AM
--- NOTE | 2017-10-31 19:54 | History and Physical ---
History & Physical Date & Time of Service: Oct 31, 2017 at 19:53 . Chief Complaint: hip pain, difficulty walking . Primary Care Physician: Constantine Kirkpatrick D.O. . History of Present Illness Source: patient, clinic records, hospital records 86 YO female followed by Dr. Kirkpatrick. History of cerebrovascular disease, mild dementia, spinal stenosis, and other problems noted below. Lives in a split-level home with her . Has had difficulty with low back pain attributed to lumbar spinal stenosis with right radiculopathy. Followed by Dr. Rosa; epidural injection in August offered only temporary relief. Has been experiencing progressive difficulties with ambulation. Using walker, but still having problems. Has fallen several times. Patient describes low back pain and left groin pain. She has tried ibuprofen without significant relief. Came to ED today for evaluation. Referral to [facility] for inpatient rehab made, but they did not have any beds available. Maud that patient is unable to be discharged to home because of ambulatory dysfunction and fall risk. . Past Medical/Surgical History Chronic Medical Problems: (1) Cerebrovascular disease Permanent Comment: infarct right basal ganglia Status: Chronic (2) Dementia Status: Chronic (3) Detached retina Status: Chronic (4) Dyslipidemia Status: Chronic (5) Fracture of humerus, condyle, right, closed Status: Chronic (6) GERD (gastroesophageal reflux disease) Status: Chronic (7) Hypertension Status: Chronic (8) Hypothyroidism Status: Chronic (9) Lumbosacral spondylolysis Status: Chronic (10) Osteoporosis Status: Chronic (11) Scoliosis Status: Chronic Surgical Problems: (1) Status post tonsillectomy Status: Chronic (2) Status post tubal ligation Status: Chronic . Family History FATHER Heart disease Prostate cancer MOTHER Melanoma Dementia Osteoporosis BROTHER Heart disease SISTER Breast cancer AUNT Ovarian cancer Social History Smoking Status: Former Smoker Alcohol Use: occasionally Marital Status: Occupational Status: retired Immunizations History of Influenza Vaccine: Yes History of Pneumococcal: Yes Multi-Drug Resistant Organisms History of MDRO: No Allergies Coded Allergies: Meclofenamate (Unverified Allergy, Unknown, RASH, 10/31/17) Home Medications Scheduled Aspirin (Aspirin Ec), 81 MG PO BID Atenolol (Tenormin), 12.5 MG PO QAM Atorvastatin (Lipitor), 40 MG PO QAM Calcium Carbonate-Vitamin D (Calcium), 1 TAB PO DAILY Cholecalciferol (Vitamin D3), 1 TAB PO DAILY Donepezil HCl (Aricept), 5 MG PO QPM Duloxetine HCl (Duloxetine HCl), 30 MG PO Q2D Eszopiclone (Lunesta), 2 MG PO HS Ejqopbqbjhs-Sqxxdtxvbzl-Lacwci (Glucosamine Chondroitin M), 1 TAB PO QAM Ipratropium Vancleave (Nasal) (Ipratropium Vancleave), 2 SPRAYS CHACHO HS Levothyroxine Sodium (Levothyroxine Sodium), 75 MCG PO QAM Melatonin (Kp Melatonin), 3 MG PO HS Pantoprazole (Protonix), 80 MG PO DINNER Scheduled PRN Acetamin/Butalbital/Caffeine (Fioricet), 1 TAB PO Q8 PRN for Headache or Pain Diclofenac Sodium (Topical) (Voltaren 1% Top Gel), 2 GM TOP QID PRN for Pain Review of Systems Constitutional: + weight loss (few pounds), No fever Eyes: + worsening of vision (detached retina) ENT: + hearing loss, + nasal symptoms Respiratory: + cough (chronic, occasional, attributed to postnasal drainage), No shortness of breath Cardiovascular: No chest pain, No edema Abdomen: No pain, No vomiting, No diarrhea, No GI bleeding Musculoskeletal: + problem reported (as noted in HPI) Genitourinary - Female: + urinary incontinence (chronic), No dysuria Neurologic: + memory loss Endocrine: No fatigue, No excessive thirst Hematologic / Lymphatic: No abnormal bleeding/bruising, No swollen lymph nodes Integumentary: No rash Physical Exam Vital Signs Date Time Temp Pulse Resp B/P (MAP) Pulse Ox O2 Delivery O2 Flow Rate FiO2 10/31/17 17:22 36.7 60 18 141/70 95 Room Air 10/31/17 14:25 60 18 120/82 96 Room Air 10/31/17 12:54 68 155/91 96 Room Air 10/31/17 10:35 73 16 96 Room Air 10/31/17 09:36 36.5 69 16 161/87 97 Room Air General Appearance: no apparent distress, + thin Head: normocephalic, atraumatic Eyes: normal inspection, PERRL, EOMI, sclerae normal, + pertinent finding ( conjunctivae clear) ENT: normal ENT inspection, hearing grossly normal, pharynx normal Neck: supple, no adenopathy, thyroid normal, no JVD, trachea midline Respiratory/Chest: lungs clear, no respiratory distress Cardiovascular: regular rate, rhythm, no edema, no gallop, no JVD, no murmur, normal peripheral pulses Abdomen/GI: normal bowel sounds, non tender, soft, no organomegaly Back: + pertinent finding (scoliosis; no lumbar tenderness; no back pain with SLR) Extremities/Musculoskelatal: no calf tenderness, normal capillary refill, no pedal edema, + pertinent finding (pain left hip / groin with flexion and rotation of hip) 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 (PERRL, EOMI, no facial palsy, no dysarthria), no motor/sensory deficits (motor testing extremities grossly intact ), oriented x 3, + pertinent finding (minimal confusion (missed date by 1 day, couldn't remember details of all meds)) Skin: normal color, warm/dry Lymphatic: no adenopathy (cervical) Diagnostics Laboratory Results Results Past 24 Hours Test 10/31/17 09:50 10/31/17 10:24 10/31/17 19:28 Range/Units White Blood Count 9.25 4.8-10.8 K/uL Red Blood Count 4.27 4.2-5.4 M/uL Hemoglobin 13.3 12.0-16.0 g/dL Hematocrit 38.7 37-47 % Mean Corpuscular Volume 90.6 80-100 fL Mean Corpuscular Hemoglobin 31.1 25-34 pg Mean Corpuscular Hemoglobin Concent 34.4 32-36 g/dl Platelet Count 178 130-400 K/uL Mean Platelet Volume 11.8 7.4-10.4 fL Neutrophils (%) (Auto) 74.5 % Lymphocytes (%) (Auto) 14.2 % Monocytes (%) (Auto) 10.2 % Eosinophils (%) (Auto) 0.6 % Basophils (%) (Auto) 0.1 % Neutrophils # (Auto) 6.89 1.4-6.5 K/uL Lymphocytes # (Auto) 1.31 1.2-3.4 K/uL Monocytes # (Auto) 0.94 0.11-0.59 K/uL Eosinophils # (Auto) 0.06 0-0.5 K/uL Basophils # (Auto) 0.01 0-0.2 K/uL RDW Standard Deviation 45.2 36.4-46.3 fL RDW Coefficient of Variation 13.7 11.5-14.5 % Immature Granulocyte % (Auto) 0.4 % Immature Granulocyte # (Auto) 0.04 0.00-0.02 K/uL Erythrocyte Sedimentation Rate 21 0-21 mm/hr Sodium Level 136 136-145 mmol/L Potassium Level 4.2 3.5-5.1 mmol/L Chloride Level 102 98-107 mmol/L Carbon Dioxide Level 30 21-32 mmol/L Anion Gap 4.0 3-11 mmol/L Blood Urea Nitrogen 31 7-18 mg/dl Creatinine 1.22 0.60-1.20 mg/dl Est Creatinine Clear Calc Drug Dose 25.9 ml/min Estimated GFR () 47.1 Estimated GFR (Non- 40.6 BUN/Creatinine Ratio 25.2 10-20 Random Glucose 106 70-99 mg/dl Calcium Level 10.1 8.5-10.1 mg/dl C-Reactive Protein 2.95 0-0.29 mg/dl Urine Color YELLOW Urine Appearance CLEAR CLEAR Urine pH 5.5 4.5-7.5 Urine Specific [place] 1.018 1.000-1.030 Urine Protein NEG NEG Urine Glucose (UA) NEG NEG Urine Ketones TRACE NEG Urine Occult Blood NEG NEG Urine Nitrite NEG NEG Urine Bilirubin NEG NEG Urine Urobilinogen NEG NEG Urine Leukocyte Esterase NEG NEG Impression Assessment and Plan AMBULATORY DYSFUNCTION May be due to spinal stenosis, osteoarthritis of hip, or other factors. Plain films as noted above. Consult Orthopedics; patient has seen Dr. Tapia in the past. Analgesics PRN. Fall precautions. PT / OT. HYPERTENSION Continue atenolol. CEREBROVASCULAR DISEASE Continue aspirin and statin. GERD Continue PPI. DYSLIPIDEMIA Continue atorvastatin. HYPOTHYROIDISM Continue levothyroxine. DEMENTIA Mild dementia. Oriented x 3 in ED. Continue donepezil. Monitor for signs / symptoms of delirium. VTE PROPHYLAXIS SQ heparin. Ambulate. DISPOSITION Observation status on Med-Surg Unit. Anticipated need for skilled care or inpatient rehab. Consult Case Management. Internal Medicine follow-up with Dr. Kirkpatrick. . VTE Prophylaxis VTE Risk Assessment Done? Y/N: Yes Risk Level: Moderate Given or contraindicated: Unfractionated heparin SQ
[2017-10-31 20:00] VITALS: BP 142/86; PULSE 75; TEMP 36.5; O2SAT 95; Ht 162.6 cm; Wt 54.0 kg
[2017-10-31] MEDS ORDERED: ACETAMINOPHEN 500 MG TAB PO PRN (20:00)
[2017-10-31] MEDS ORDERED: BUTALBITAL/ACETAMIN/CAFFEINE TAB PO PRN (20:00)
[2017-10-31 20:04] LABS: PTT PATIENT 26.1 SECONDS (21.0-31.0)
[2017-10-31] MEDS ORDERED: NURSING VERBAL MED ORDER ONE (20:45)
[2017-10-31] MEDS ORDERED: ESZOPICLONE 2 MG TAB PO SCH (21:00)
[2017-10-31] MEDS ORDERED: NON-FORMULARY MEDICATION (Melatonin (Kp Melatonin) 3 MG) PO SCH (21:00)
[2017-10-31] MEDS ORDERED: DEXAMETHASONE INJ 10 MG in SYRINGE 0 ML IV ONE (21:00)
[2017-10-31] MEDS ORDERED: DONEPEZIL HCL 5 MG TAB PO SCH (21:00)
[2017-10-31] MEDS: ASPIRIN 81 MG ECTAB PO SCH (21:06)
[2017-10-31] MEDS ORDERED: IV FLUIDS COMPLETED PRN (21:30)
--- NOTE | 2017-10-31 21:36 | PROGRESS NOTE ---
DATE: 10/31/2017 I will order x-rays of lumbar spine 4 views as she has not had these done in several years and has significant degenerative disease and scoliosis. She has been treated in the past with multiple injections by Dr. Garcia Rosa. WE can always get a consult from him if she remains inpatient for potential injection. Presently we can stick with the plan as outlined on the previous consultation notes. TRACY
--- NOTE | 2017-10-31 21:44 | ORTHOPEDIC CONSULTATION ---
DATE OF CONSULTATION: 10/31/2017 CHIEF COMPLAINT: Left leg pain. HISTORY OF PRESENT ILLNESS: The patient has longstanding back and leg pain. Last couple days has been unable to bear weight secondary to the discomfort. She denies any numbness or tingling but she notes it is more than what she normally has in the back ; she has no abdominal pain. 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 Past medical history is also remarkable for CVA, esophageal reflux, hypertension, hypothyroidism, lumbago, lumbosacral spondylosis, osteoporosis and senile dementia. SOCIAL HISTORY: Reveals she does not smoke. She does not use alcohol. She is . She is retired. PREADMISSION MEDICATIONS: Include aspirin, atenolol, atorvastatin, calcium supplement, cholecalciferol supplement, topical Voltaren gel, Aricept, duloxetine, Lunesta, glucosamine chondroitin sulfate, ipratropium bromide nasal spray, levothyroxine, melatonin and Protonix. ALLERGIES: INCLUDE MECLOFENAMATE, POSSIBLE RASH. Uses p.r.n., acetaminophen, butalbital, and caffeine (Fioricet for headaches). PERTINENT PHYSICAL EXAMINATION: ABDOMEN: Reveals no abdominal tenderness. No palpable mass. NEUROVASCULAR: Neurovascular check femoral sciatic nerve is intact. Right lower extremity reveals no pain with lifting; left lower extremity reveals pain in the groin and the back with lifting the leg. Passive log rolling produces no pain and passive hip flexion produces no pain. Distal sensory exam is within normal limits L4 through S1. IMAGING DATA: X-rays revealed moderate degenerative change. This is of the left hip. Ultrasound of the leg does not reveal any DVT. 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 At this point in time, she is dysfunctional and not safe for ambulation. She was admitted for protection and will likely be transferred to rehabilitation facility. In order to try to expedite her comfort level, decrease any reactive synovitis in the facet joints and in her hip as there is no sign of sepsis clinically, will give her a dose of Decadron 10 mg IV x1 now. Reassess in the a.m. Mobilize to tolerance. Pain management per primary care. Follow as an outpatient. Will need physical therapy, occupational therapy assessments once she is transferred to [facility] for safe mobilization. Note that right upper extremity is limited based on longstanding proximal humerus nonunion that has been elected to be treated nonsurgically based on patient's inability to rehab appropriately and having a reasonable comfort. [facility]
[2017-10-31 23:01] VITALS: BP 136/85; PULSE 71; TEMP 36.5; O2SAT 93
[2017-11-01] MEDS ORDERED: LEVOTHYROXINE 75 MCG TAB PO SCH (06:30)
--- NOTE | 2017-11-01 07:16 | ORTHOPEDICS PROGRESS NOTE ---
DATE: 11/01/2017 The patient had reasonable response to the Decadron last evening. She is resting comfortably in bed. She denies any pain lying at rest. She denies chest pain, shortness of breath, fever, chills, nausea, vomiting or headache. Vital signs are stable. She is afebrile. Exam today reveals abdomen to be soft. Calves soft. Can logroll the leg and flex it up easily to 90 degrees with minimal if any discomfort. Still has some minor discomfort with internal and external rotation consistent with osteoarthritis. There is no sign of sepsis in the hip. Neurovascular check, lower extremity is grossly intact, but has weakness at baseline with extension and dorsiflexion. Also has weak hip flexion. ASSESSMENT: Exacerbated low back pain. Has been followed by Dr. Rosa in the past and has had multiple injections. At this point in time, suggest Medrol dose taper to control her stenotic flare and her potential hip osteoarthritis/synovitis/tendinopathy. She will need observed PT, OT and inpatient assessment for safety. Will likely be transferred to [facility]. Can have outpatient spine injections per Dr. Rosa. Again obtain x-rays today. I see no indication for any additional orthopedic interventions at this point in time. We will order one more dose of IV Decadron as an oral taper per medical support. Suggest follow up with Dr. Rosa in the near future.
[2017-11-01 07:43] VITALS: BP 147/85; PULSE 62; TEMP 36.5; O2SAT 94
[2017-11-01] MEDS ORDERED: HEPARIN SOD 5000 UNIT/0.5 ML CARP SQ SCH (08:00)
[2017-11-01] MEDS ORDERED: ATORVASTATIN 40 MG TAB PO SCH (08:00)
[2017-11-01] MEDS ORDERED: CHOLECALCIFEROL 1000 INTER.UNIT TAB PO SCH (08:00)
[2017-11-01] MEDS: ASPIRIN 81 MG ECTAB PO SCH (08:33)
[2017-11-01] MEDS ORDERED: DULOXETINE (CYMBALTA) 30 MG CAP PO SCH (09:00)
[2017-11-01] MEDS ORDERED: DEXAMETHASONE INJ 6 MG in SYRINGE 0 ML IV ONE (10:00)
--- NOTE | 2017-11-01 10:03 | DIAGNOSTIC IMAGING REPORT ---
L-SPINE MIN 4 VIEWS ROUTINE CLINICAL HISTORY: Lower back pain COMPARISON STUDY: October 2013 FINDINGS: There is a moderate scoliosis similar to the preceding study. There are advanced multilevel degenerative changes. There are endplate erosive changes slightly progressive. No acute fractures are visualized. There are suspected cholelithiasis. IMPRESSION: 1. Scoliosis and advanced multilevel degenerative change slightly progressive when compared the prior study. No acute fractures identified. 2. Suspected cholelithiasis Electronically signed by: Koko Ferrari M.D. 11/01/2017 10:02 AM Dictated Date/Time: 11/01/2017 9:52 AM
[2017-11-01 14:02] VITALS: BP 147/85; PULSE 62; TEMP 36.5; O2SAT 94
--- NOTE | 2017-11-01 14:48 | Progress Note ---
Medicine Progress Note Date & Time of Visit: Nov 01, 2017 at 14:45 . Subjective Persistent left groin pain, especially with ambulation. Otherwise, doing well. Accepted for transfer to [facility]. . Objective Last 8 Hrs Date Time Temp Pulse Resp B/P (MAP) Pulse Ox O2 Delivery O2 Flow Rate FiO2 11/01/17 14:02 36.5 62 16 94 Room Air 11/01/17 08:30 Room Air 11/01/17 07:43 36.5 62 16 147/85 (105) 94 Physical Exam: General- no distress Lungs- clear Heart- RRR Abdomen- + BS, soft, nontender Back- scoliosis Extremities- no pretibial edema or calf tenderness; left hip pain with flexion and rotation Neuro- alert; motor exam lower extremities grossly intact . Laboratory Results: Last 24 Hours Test 10/31/17 19:28 Prothrombin Time 10.3 SECONDS Prothromb Time International Ratio 1.0 Activated Partial Thromboplast Time 26.1 SECONDS Partial Thromboplastin Ratio 1.0 Assessment & Plan AMBULATORY DYSFUNCTION May be due to spinal stenosis, osteoarthritis of left hip, or other factors. Venous duplex left lower extremity negative for DVT. X-ray left hip showed moderate degenerative change. X-ray lumbar spine showed scoliosis and advanced multilevel degenerative change. Seen in consultation by Dr. Tapia. Analgesics PRN. Fall precautions. PT / OT. HYPERTENSION Continue atenolol. CEREBROVASCULAR DISEASE Continue aspirin and statin. GERD Continue PPI. DYSLIPIDEMIA Continue atorvastatin. HYPOTHYROIDISM Continue levothyroxine. DEMENTIA Mild dementia. Oriented x 3. Continue donepezil. Monitor for signs / symptoms of delirium. VTE PROPHYLAXIS SQ heparin. Ambulate. DISPOSITION Unable to return home at this time due to ambulatory dysfunction and fall risk. Arrangements made for transfer to [facility] for inpatient rehab. Internal Medicine follow-up with Dr. Kirkpatrick. Orthopedics follow-up with Dr. Tapia as needed. Physiatry follow-up with Dr. Rosa. . Current Inpatient Medications: Current Inpatient Medications Medications (Trade) Dose Ordered Sig/Rosa M Route Start Time Stop Time Status Last Admin Dose Admin Heparin Sodium (Porcine) (Heparin Sq 5000 Unit/0.5ml) 5,000 unit BID SQ 11/01/17 08:00 12/01/17 08:59 11/01/17 08:38 5,000 UNIT Acetaminophen/ Butalbital/ Caffeine (Fioricet Tab) 1 tab Q8H PRN PO 10/31/17 20:00 11/30/17 19:59 Aspirin (Ecotrin Tab) 81 mg BID PO 10/31/17 20:00 11/30/17 19:59 11/01/17 08:33 81 MG Atenolol (Tenormin Tab) 12.5 mg QAM PO 11/01/17 08:00 12/01/17 07:59 11/01/17 08:33 12.5 MG Atorvastatin Calcium (Lipitor Tab) 40 mg QAM PO 11/01/17 08:00 12/01/17 07:59 11/01/17 08:33 40 MG Cholecalciferol (Vitamin D Tab) 1,000 inter.unit DAILY PO 11/01/17 08:00 12/01/17 07:59 Donepezil HCl (Aricept Tab) 5 mg QPM PO 10/31/17 21:00 11/30/17 20:59 10/31/17 21:05 5 MG Duloxetine HCl (Cymbalta Cap) 30 mg Q2D PO 11/01/17 09:00 12/01/17 08:59 11/01/17 08:33 30 MG Eszopiclone (Lunesta Tab) 2 mg HS PO 10/31/17 21:00 11/30/17 20:59 10/31/17 21:57 2 MG Levothyroxine Sodium (Synthroid Tab) 75 mcg DAILYBB PO 11/01/17 06:30 12/01/17 06:29 11/01/17 06:28 75 MCG Pantoprazole Sodium (Protonix Tab) 80 mg DAILY@1800 PO 11/01/17 18:00 12/01/17 17:59 Miscellaneous Information (Order Awaiting Action) 1 ea QS N/A 10/31/17 21:00 11/30/17 20:59 Acetaminophen (Tylenol Tab) 1,000 mg Q8H PRN PO 10/31/17 20:00 11/30/17 19:59 Miscellaneous (Iv Fluids Completed) 1 ea PRN PRN N/A 10/31/17 21:30 10/31/18 21:29
[2017-11-01] MEDS ORDERED: ACET-24 PO (14:50)
[2017-11-01] MEDS ORDERED: HPRIS5M SQ (14:50)
--- NOTE | 2017-11-01 15:00 | Discharge Instructions ---
Discharge Instructions Date of Service Nov 01, 2017. Admission Reason for Admission: Ambulatory Dysfunction Discharge Discharge Diagnosis / Problem: ambulatory dysfunction, osteoathritis left hip, lumbar spondylolysis Discharge Goals Goal(s): Decrease discomfort, Improve function, Increase independence, Improve disease control Activity Recommendations Activity Level: Assistance Required . Additional Information Patient informed of condition: Yes Advance Directives: Yes DNR: No Level of Care: Acute Rehab Communicable Disease: No Prognosis: Stable Hutchinson Catheter: No Instructions / Follow-Up Instructions / Follow-Up FOLLOW-UP APPOINTMENTS INTERNAL MEDICINE Dr. Kirkpatrick ORTHOPEDICS Dr. Tapia PHYSIATRY Moe Saravia Thank you for receiving this patient in transfer. Please call if you have any questions. Maxwell Dickinson . Current Hospital Diet Patient's current hospital diet: AHA Diet (Heart Healthy) Discharge Diet Recommended Diet: AHA Diet (Heart Healthy) Pending Studies Studies pending at discharge: no Physician Orders On Transfer Special Precautions: fall precautions no pulling / lifting right arm delirium precautions . Vital Signs: routine . Weigh: routine . Medical Emergencies . Who to Call and When: Medical Emergencies: If at any time you feel your situation is an emergency, please call 911 immediately. . Non-Emergent Contact Non-Emergency issues call your: Primary Care Provider, Hospital Doctor . . "Provider Documentation" section prepared by Maxwell Dickinson. . Core Measure Problem Core Measures: None
--- NOTE | 2017-11-01 15:03 | Discharge Summary ---
Discharge Summary Date of Service Nov 01, 2017. Discharge Summary Admission Date: Oct 31, 2017 at 18:04 Discharge Date: Nov 01, 2017 Discharge Disposition: Rehab Principal Diagnosis: ambulatory dysfunction osteoarthritis left hip spondylolysis lumbar spine fracture right proximal humerus (old) . Secondary Diagnoses/Problems: Chronic and Resolved Medical Problems: (1) Cerebrovascular disease Permanent Comment: infarct right basal ganglia Status: Chronic (2) Dementia Status: Chronic (3) Detached retina Status: Chronic (4) Dyslipidemia Status: Chronic (5) Fracture of humerus, condyle, right, closed Status: Chronic (6) GERD (gastroesophageal reflux disease) Status: Chronic (7) Hypertension Status: Chronic (8) Hypothyroidism Status: Chronic (9) Lumbosacral spondylolysis Status: Chronic (10) Osteoporosis Status: Chronic (11) Scoliosis Status: Chronic Surgical Problems: (1) Status post tonsillectomy Status: Chronic (2) Status post tubal ligation Status: Chronic . Consultations: Orthopedics with Dr. Tapia. . Medication Reconciliation New Medications: Acetaminophen (Sb Non-Aspirin Extra Stre) 500 Mg Tab 1000 MG PO Q8H PRN for pain for 30 Days Heparin Sod (Porcine) (Heparin Sodium) 5,000 Unit/0.5 Ml Inj 5000 UNIT SQ BID for 30 Days Continue until ambulatory. Continued Medications: Acetamin/Butalbital/Caffeine (Fioricet) 1 Ea Tab 1 TAB PO Q8 PRN for Headache or Pain Aspirin (Aspirin Ec) 81 Mg Tab 81 MG PO BID Atenolol (Tenormin) 25 Mg Tab 12.5 MG PO QAM Atorvastatin (Lipitor) 40 Mg Tab 40 MG PO QAM Calcium Carbonate-Vitamin D (Calcium) 1 Tab Tab 1 TAB PO DAILY Cholecalciferol (Vitamin D3) 1,000 Unit Tab 1 TAB PO DAILY, TAB Diclofenac Sodium (Topical) (Voltaren 1% Top Gel) 1 % Gel 2 GM TOP QID PRN for Pain Donepezil HCl (Aricept) 5 Mg Tab 5 MG PO QPM Duloxetine HCl (Duloxetine HCl) 30 Mg Cap 30 MG PO Q2D Eszopiclone (Lunesta) 2 Mg Tab 2 MG PO HS Arayhpmyims-Wvyhcwzevtr-Pxgquw (Glucosamine Chondroitin M) 1 Tab Tab 1 TAB PO QAM Ipratropium Nada (Nasal) (Ipratropium Nada) 0.03 % Spr 2 SPRAYS CHACHO HS Levothyroxine Sodium (Levothyroxine Sodium) 75 Mcg Tab 75 MCG PO QAM Melatonin (Kp Melatonin) 3 Mg Tab 3 MG PO HS Pantoprazole (Protonix) 40 Mg Tab 80 MG PO DINNER Admission Information HPI (per Admitting provider): 86 YO female followed by Dr. Kirkpatrick. History of cerebrovascular disease, mild dementia, spinal stenosis, and other problems noted below. Lives in a split-level home with her . Has had difficulty with low back pain attributed to lumbar spinal stenosis with right radiculopathy. Followed by Dr. Rosa; epidural injection in August offered only temporary relief. Has been experiencing progressive difficulties with ambulation. Using walker, but still having problems. Has fallen several times. Patient describes low back pain and left groin pain. She has tried ibuprofen without significant relief. Came to ED today for evaluation. Referral to [facility] for inpatient rehab made, but they did not have any beds available. Trail that patient is unable to be discharged to home because of ambulatory dysfunction and fall risk. . Physical Exam (per Admitting): General Appearance: no apparent distress, + thin Head: normocephalic, atraumatic Eyes: normal inspection, PERRL, EOMI, sclerae normal, + pertinent finding ( conjunctivae clear) ENT: normal ENT inspection, hearing grossly normal, pharynx normal Neck: supple, no adenopathy, thyroid normal, no JVD, trachea midline Respiratory/Chest: lungs clear, no respiratory distress Cardiovascular: regular rate, rhythm, no edema, no gallop, no JVD, no murmur , normal peripheral pulses Abdomen/GI: normal bowel sounds, non tender, soft, no organomegaly Back: + pertinent finding (scoliosis; no lumbar tenderness; no back pain with SLR) Extremities/Musculoskelatal: no calf tenderness, normal capillary refill, no pedal edema, + pertinent finding (pain left hip / groin with flexion and rotation of hip) Neurologic/Psych: senior analyst market intelligence II-XII nml as tested (PERRL, EOMI, no facial palsy, no dysarthria), no motor/sensory deficits (motor testing extremities grossly intact), oriented x 3, + pertinent finding (minimal confusion (missed date by 1 day, couldn't remember details of all meds)) Skin: normal color, warm/dry Lymphatic: no adenopathy (cervical) Hospital Course AMBULATORY DYSFUNCTION May be due to spinal stenosis, osteoarthritis of left hip, or other factors. Venous duplex left lower extremity negative for DVT. X-ray left hip showed moderate degenerative change. X-ray lumbar spine showed scoliosis and advanced multilevel degenerative change. Seen in consultation by Dr. Tapia. Analgesics PRN. Fall precautions. PT / OT. HYPERTENSION Continue atenolol. CEREBROVASCULAR DISEASE Continue aspirin and statin. GERD Continue PPI. DYSLIPIDEMIA Continue atorvastatin. HYPOTHYROIDISM Continue levothyroxine. DEMENTIA Mild dementia. Oriented x 3. Continue donepezil. Monitor for signs / symptoms of delirium. VTE PROPHYLAXIS SQ heparin. Ambulate. DISPOSITION Unable to return home at this time due to ambulatory dysfunction and fall risk. Arrangements made for transfer to [facility] for inpatient rehab. Internal Medicine follow-up with Dr. Kirkpatrick. Orthopedics follow-up with Dr. Tapia as needed. Physiatry follow-up with Dr. Rosa. . Discharge Instructions Date of Service Nov 01, 2017. Admission Reason for Admission: Ambulatory Dysfunction Discharge Discharge Diagnosis / Problem: ambulatory dysfunction, osteoathritis left hip, lumbar spondylolysis Discharge Goals Goal(s): Decrease discomfort, Improve function, Increase independence, Improve disease control Activity Recommendations Activity Level: Assistance Required . Additional Information Patient informed of condition: Yes Advance Directives: Yes DNR: No Level of Care: Acute Rehab Communicable Disease: No Prognosis: Stable Hutchinson Catheter: No Instructions / Follow-Up Instructions / Follow-Up FOLLOW-UP APPOINTMENTS INTERNAL MEDICINE Dr. Kirkpatrick ORTHOPEDICS Dr. Tapia PHYSIATRY Moe Saravia Thank you for receiving this patient in transfer. Please call if you have any questions. Maxwell Dickinson . Current Hospital Diet Patient's current hospital diet: AHA Diet (Heart Healthy) Discharge Diet Recommended Diet: AHA Diet (Heart Healthy) Pending Studies Studies pending at discharge: no Physician Orders On Transfer Special Precautions: fall precautions no pulling / lifting right arm delirium precautions . Vital Signs: routine . Weigh: routine . Medical Emergencies . Who to Call and When: Medical Emergencies: If at any time you feel your situation is an emergency, please call 911 immediately. . Non-Emergent Contact Non-Emergency issues call your: Primary Care Provider, Hospital Doctor . . "Provider Documentation" section prepared by Maxwell Dickinson. . Core Measure Problem Core Measures: None . Additional Copies To Garcia Rosa M.D.; Louie Tapia M.D.; Constantine Kirkpatrick D.O.
[2017-11-01] MEDS ORDERED: PANTOprazole SOD 40 MG TAB PO SCH (18:00)
== END 2017-11-01 15:15 ==
LOC: EDBD 09:28 → C.EDA 09:29 → C.4E 18:04 → ENRESERV 18:29
PROVIDERS: ADMIT Hospitalist; ATTEND Hospitalist
DX: R26.89 Other abnormalities of gait and mobility (principal); M16.12 Unilateral primary osteoarthritis, left hip; M47.896 Other spondylosis, lumbar region; S42.201A Unspecified fracture of upper end of right humerus, initial encounter for closed fracture; X58.XXXA Exposure to other specified factors, initial encounter; F03.90 Unspecified dementia, unspecified severity, without behavioral disturbance, psychotic disturbance, mood disturbance, and anxiety; E78.5 Hyperlipidemia, unspecified; I10 Essential (primary) hypertension; E03.9 Hypothyroidism, unspecified; K21.9 Gastro-esophageal reflux disease without esophagitis; Z90.89 Acquired absence of other organs; Z98.51 Tubal ligation status; Z79.82 Long term (current) use of aspirin; Z79.899 Other long term (current) drug therapy; Z82.49 Family history of ischemic heart disease and other diseases of the circulatory system; Z80.3 Family history of malignant neoplasm of breast; Z81.8 Family history of other mental and behavioral disorders

== ENCOUNTER → 2018-02-03 | Outpatient (CLI) | payer OTHER, MEDICARE ==
[~2018-02-03] MED LIST changes: +ACET-24 PO; +CALC-51 PO; +CHOL1000 PO; +CYM30 PO; -DULO60CA44 PO; +HPRIS5M SQ
--- NOTE | 2018-02-04 07:39 | MAMMOGRAPHY REPORT ---
BILATERAL DIGITAL SCREENING MAMMOGRAM TOMOSYNTHESIS WITH CAD: 02/03/2018 CLINICAL HISTORY: Routine screening. Patient has no complaints. TECHNIQUE: Breast tomosynthesis in addition to standard 2D mammography was performed. Current study was also evaluated with a Computer Aided Detection (CAD) system. COMPARISON: Comparison is made to exams dated: 02/13/2017 mammogram, 01/30/2017 mammogram, 01/26/2016 ma mmogram, 01/24/2015 mammogram, 01/21/2014 mammogram, and 01/13/2013 mammogram - [facility]. BREAST COMPOSITION: The tissue of both breasts is heterogeneously dense, which may obscure small mas ses. FINDINGS: A linear scar marker overlies the upper outer quadrant of the right breast. A left breast asymmetry is no longer seen. No new suspicious mass, architectural distortion or cluster of microcal cifications is seen. IMPRESSION: ACR BI-RADS CATEGORY 1: NEGATIVE There is no mammographic evidence of malignancy. A 1 year screening mammogram is recommended. The pa tient will receive written notification of the results. Approximately 10% of breast cancers are not detected with mammography. A negative mammographic report should not delay biopsy if a clinically suggestive mass is present. Nichelle Ferrell M.D. ay/:02/03/2018 15:47:36 Healthcare Recruiter: Julissa FERNANDEZ)(Demian), [facility] letter sent: Normal 1/2 BI-RADS Code: ACR BI-RADS Category 1: Negative
== END | disposition home or self-care (01) ==
LOC: C.MAMM 13:14
PROVIDERS: ATTEND Obstetrics & Gynecology
DX: Z12.31 Encounter for screening mammogram for malignant neoplasm of breast (principal)

== ENCOUNTER → 2018-02-12 | Day surgery (SDC) | payer OTHER, MEDICARE ==
[2018-02-10 11:13] VITALS: Ht 162.6 cm; Wt 58.6 kg
[~2018-02-12] VITALS: Ht 162.6 cm; Wt 58.6 kg
[~2018-02-12] MED LIST changes: -ACET-24 PO; -CALC-51 PO; -CHOL1000 PO; -CYM30 PO; -DICL1GEL12 TOP; +DULO-24 PO; -FRCT/ PO; -HPRIS5M SQ; +IBUP-1050 PO; +LIDOCAINE HCL 1% MPF 5 ML VIAL ONE; +LOSA1TAB PO; +MULT-190 PO; +PANT1TAB3 PO; -PANT40TA PO; +SODIUM CHLORIDE 0.9% INJ 10 ML VIAL ONE
--- NOTE | 2018-02-12 13:12 | [facility] Post Operative Brief Note ---
Immediate Operative Summary Operative Date February 12, 2018. Pre-Operative Diagnosis LOW BACK PAIN, SACROILIITIS, SPONDYLOSIS, LUMBAR REGION SCOLIOSIS. Post-Operative Diagnosis SAME Procedure(s) Performed CAUDAL EPIPURAL STEROID INJECTION. Surgeon DR. Jose BRADSHAW Assembling Machine Operator Surgeon(s) None Estimated Blood Loss None Findings Consistent with Post-Op Diagnosis Specimens NA Drains None Anesthesia Type Local Complication(s) none Disposition Disposition:
[2018-02-12 13:14] VITALS: BP 144/78; PULSE 52; TEMP 36.8; O2SAT 99
--- NOTE | 2018-02-12 13:40 | Discharge Instructions ---
Discharge Instructions Date of Service February 12, 2018. Visit Reason for Visit: Low Back Pain, Sacroiliitis Discharge Discharge Diagnosis / Problem: right leg pain Discharge Goals Goal(s): Decrease discomfort, Improve function Activity Recommendations Activity Limitations: resume your previous activity Anesthesia . Post Anesthesia Instructions: If you have had General Anesthesia or IV Sedation: * Do not drive today. * Resume driving when surgeon permits. * Do not make important decisions or sign legal documents today. * Call surgeon for: 1. Temperature elevations greater than 101 degrees F. 2. Uncontrollable pain. 3. Excessive bleeding. 4. Persistent nausea and vomiting. 5. Medication intolerance (nausea, vomiting or rash). * For nausea and vomiting use only clear liquids such as: tea, soda, bouillon until nausea subsides, then gradually increase diet as tolerated. * If you have any concerns or questions, call your surgeon's office. If physician is unavailable and it is an emergency, call 911 or go to the nearest emergency room. . Diet Recommendations Recommended Home Diet: resume previous diet Procedures Procedures Performed: CAUDAL EPIPURAL STEROID INJECTION. Pending Studies Studies pending at discharge: no Medical Emergencies . Who to Call and When: Medical Emergencies: If at any time you feel your situation is an emergency, please call 911 immediately. . Non-Emergent Contact Non-Emergency issues call your: Specialist . . "Provider Documentation" section prepared by Garcia Rosa. .
--- NOTE | 2018-02-12 13:50 | OPERATIVE REPORT ---
DATE OF OPERATION: 02/12/2018 PREOPERATIVE DIAGNOSIS: Lumbar stenosis with right lower extremity radiculopathy. POSTOPERATIVE DIAGNOSIS: Lumbar stenosis with right lower extremity radiculopathy. PROCEDURE: Caudal epidural steroid injection under fluoroscopic guidance. INDICATIONS: The patient is an 87-year-old white female who has had a good success with a caudal injection provided to her with a number of months of relief. The pain has returned and is problematic to her and functionally limiting to her. She presents today for a caudal epidural injection to provide her with relief of radicular complaints. PHYSICAL EXAMINATION: Pleasant female, seated comfortably. She is without any focal motor or sensory deficits of her lower extremities. Negative seated and straight leg raises. CONSENT: Verbal and written consent was obtained from the patient. Risks and benefits reviewed. Risks include but are not limited to abscess and allergic reaction. The patient wishes to proceed. DESCRIPTION OF PROCEDURE: The patient was taken back to the special procedures room of [facility] where she was maintained in a prone position. Backside was cleansed with Betadine x3, and a dry sterile dressing was applied. Fluoroscope was used to identify the sacral hiatus in the lateral view, and the overlying skin was anesthetized with 4 mL preservative free lidocaine 1% with 25 gauge 1-1/2-inch needle. A 25 gauge 3-1/2 inch spinal needle was then directed under lateral fluoroscopic guidance into the sacral canal. She then underwent injection after negative aspiration of 40 mg of Depo-Medrol and 4 mL of preservative free sodium chloride. Injection was well tolerated. DISPOSITION: 1. The patient is taken out into the discharge recovery area where she will be discharged home once discharge criteria met. 2. Follow up in the [facility] office in 4 weeks' time. I attest to the content of the Intraoperative Record and any orders documented therein. Any exception s are noted below.
== END | disposition home or self-care (01) ==
LOC: X.SURG 11:35
PROVIDERS: ATTEND Physical Medicine & Rehabilitation
DX: M46.1 Sacroiliitis, not elsewhere classified (principal); M48.061 Spinal stenosis, lumbar region without neurogenic claudication; M47.9 Spondylosis, unspecified; M41.9 Scoliosis, unspecified; K21.9 Gastro-esophageal reflux disease without esophagitis; F32.9 Major depressive disorder, single episode, unspecified; E78.5 Hyperlipidemia, unspecified; I10 Essential (primary) hypertension; E03.9 Hypothyroidism, unspecified; Z79.82 Long term (current) use of aspirin; Z82.49 Family history of ischemic heart disease and other diseases of the circulatory system